=== PATIENT | male | born 2000 | race Two or more races ===

== ENCOUNTER 2022-02-26 14:27 | Emergency (ER) | payer OTHER ==
[~2022-02-26] VITALS: Ht 165.1 cm; Wt 55.5 kg
[2022-02-26 14:48] VITALS: BP 115/61
[2022-02-26] MEDS ORDERED: ACETAMINOPHEN 500 MG TAB PO ONE (15:45)
[2022-02-26] MEDS ORDERED: ONDANSETRON ODT 4 MG TAB PO ONE (15:45)
== END 2022-02-26 17:09 | disposition home or self-care (01) ==
LOC: ER 14:27
DX: J68.9 Unspecified respiratory condition due to chemicals, gases, fumes and vapors (principal); R42 Dizziness and giddiness; R51.9 Headache, unspecified
CPT/HCPCS: 99283; Q0162